=== PATIENT | female | born 1990 | race African-American/Black ===

== ENCOUNTER 2022-06-27 02:32 | Emergency (ER) | payer SELFPAY ==
--- NOTE | ~2022-06-27 | XR_ITS ---
EXAMINATION: XR chest 2V DATE: 06/27/2022 03:05 INDICATION: Shortness of breath. Chest pain. TECHNIQUE: Frontal and lateral views of the chest were obtained. COMPARISON: None. FINDINGS: The chest demonstrates clear lungs without pneumonia, pleural effusion, or pneumothorax. Th e heart size is normal. IMPRESSION: 1. No acute cardiopulmonary disease. Reviewed, dictated and finalized at location A. CARE GIVER
--- NOTE | 2022-06-27 02:35 | ECG_ITS ---
Measurements Intervals [place] Rate: 86 P: 58 AL: 158 QRS: 5 QRSD: 95 T: 43 QT: 356 QTc: 427 Interpretive Statements SINUS RHYTHM NO PREVIOUS ECG AVAILABLE FOR COMPARISON Electronically Signed On 06-27-2022 16:24:59 [employer] by Shanon Diop M.D.
[2022-06-27 02:41] VITALS: BP 151/92; PULSE 83; RESP 20; TEMP 37; O2SAT 100
[2022-06-27 03:00] LABS: Basophils Absolute Auto 0.1 K/mm3 (0.0-0.1); Basophils Percent Auto 0.7 % (0.2-1.2); Eosinophils Absolute Auto 0.3 K/mm3 (0-0.3); Eosinophils Percent Auto 2.6 % (0-4.4); Hematocrit 37.1 % (37.0-47.0); Immature Granulocyte Absolute 0.03 K/mm3 (0.00-0.031); Immature Granulocyte Percent A 0.3 % (0-0.5); Lymphocytes Absolute Auto 3.61 K/mm3 (0.9-3.2); Lymphocytes Percent Auto 37.1 % (18.3-44.2); Mean Corpuscular HGB Conc 32.3 g/dl (32-36); Mean Corpuscular Hemoglobin 28.6 pg (26-34); Mean Corpuscular Volume 88.5 fl (80-100); Mean Platelet Volume 8.9 fl (7.4-10.4); Monocytes Percent Auto 9.9 % (2.6-8.5); Neutrophils Absolute Auto 4.8 K/mm3 (1.3-6.7); Neutrophils Percent Auto 49.4 % (45.5-73.1); Platelet Count Result 480 k/mm3 (150-375); Red Blood Count 4.19 M/mm3 (4.2-5.4); Red Cell Distribution Width 14.3 % (11.5-14.5); White Blood Count 9.7 K/mm3 (4.5-10.0)
[2022-06-27 03:10] LABS: INR 1.1; Prothrombin Time 13.3 Seconds (11.1-14.7)
[2022-06-27 03:11] LABS: Alanine Aminotransferase 18 U/L (6-35); Albumin Level 4.3 g/dL (3.5-5.1); Alkaline Phosphatase 90 U/L (38-126); Anion Gap 8 mmol/L (8-16); Aspartate Amino Transferase 23 U/L (14-36); Bilirubin,Total 0.5 mg/dL (0.2-1.3); Blood Urea Nitrogen 10 mg/dL (7-17); Calcium 8.6 mg/dL (8.4-10.2); Carbon Dioxide 26 mmol/L (22-30); Chloride 105 mmol/L (98-107); Estimated Glomerular Filt Rate > 60; Glucose 100 mg/dL (65-110); Lipase 57 U/L (23-300); Potassium 3.5 mmol/L (3.4-5.0); Sodium 139 mmol/L (137-145)
[2022-06-27 03:23] LABS: Troponin I < 0.012 ng/mL (0.000-0.034)
[2022-06-27 03:35] LABS: Influenza A QL RT-PCR Negative (Negative); Influenza B QL RT-PCR Negative (Negative); RSV RNA, RT-PCR Negative (Negative); SARS-CoV-2 RNA PCR Positive
[2022-06-27 06:46] VITALS: BP 143/101; PULSE 86; RESP 14; TEMP 37.3; O2SAT 99
[2022-06-27 07:30] VITALS: O2SAT 99
--- NOTE | 2022-06-27 07:42 | ED.GENADULT ---
HPI - General Adult General Chief complaint: Chest Pain Stated complaint: chest pain/cough Time Seen by Provider: 06/27/22 07:18 History of Present Illness HPI narrative: 32-year-old female that denies any significant past medical history presented to the emergency department for evaluation of 2 days of cough and then a subsequent 2 days of additional chest pain and sore throat and body aches. Patient states she does work at [employer] and is fully vaccinated. Patient states she has not taken any medications for her symptoms Review of Systems Review of Systems: CONSTITUTIONAL: See HPI EYES: Denies visual changes, redness, or discharge. ENT: Denies rhinorrhea, congestion, sore throat, or otalgia. CARDIOVASCULAR: Denies chest pain, palpitations, or edema. RESPIRATORY: See HPI GASTROINTESTINAL: Denies abdominal pain, nausea, vomiting, or diarrhea. GENITOURINARY: Denies dysuria or hematuria. SKIN: Denies rash or itching. MUSCULOSKELETAL: Denies back pain, joint pain, or myalgia. NEUROLOGIC: Denies headache, numbness, or weakness. Exam Narrative: APPEARANCE: Well appearing, no pain, no distress, well-nourished. HEAD: normocephalic, atraumatic. EYES: PERRLA/EOMI, conjunctivae clear. NOSE: Normal no drainage EARS:TMS clear with good light reflex. THROAT: Pharynx clear, no exudate. NECK: Supple. No adenopathy, no masses. RESPIRATORY: Airway patent, respirations nonlabored. Clear to auscultation bilaterally, no rales, rhonchi, wheezing. CARDIOVASCULAR: Regular rate and rhythm without murmurs rubs or gallops. ABDOMINAL: Soft, nontender, nondistended, normal bowel sounds MUSCULOSKELETAL: Moves all extremities. Strength/ROM intact, No edema, No calf tenderness. NEURO: Alert. Cranial nerves II through XII intact. Grossly intact SKIN: Warm, dry. Normal Color Course Course Emergency Course: Patient did test positive for COVID. Patient's x-ray shows no acute cardiopulmonary malady. Patient is nontachycardic or hypoxic. Patient is afebrile with no leukocytosis. Patient's coags are within normal limits patient CMP shows no abnormalities. Patient was negative for influenza and RSV. Patient was updated on the results of the work-up and on the treatment plan for home. All question concerns were addressed. Patient will be provided Tessalon Perles and an albuterol inhaler for home. Vital Signs Vital signs: Vital Signs Temperature 98.6 F 06/27/22 02:41 Pulse Rate 83 06/27/22 02:41 Respiratory Rate 20 06/27/22 02:41 Blood Pressure 151/92 H 06/27/22 02:41 Pulse Oximetry 100 06/27/22 02:41 Oxygen Delivery Room Air 06/27/22 02:41 Temperature 99.1 F 06/27/22 06:46 Pulse Rate 70 06/27/22 08:20 Respiratory Rate 16 06/27/22 08:20 Blood Pressure 120/78 06/27/22 08:20 Pulse Oximetry 97 06/27/22 08:20 Oxygen Delivery Room Air 06/27/22 07:30 Medical Decision Making Vital Signs Vital Signs: Vital Signs Temperature 98.6 F 06/27/22 02:41 Pulse Rate 83 06/27/22 02:41 Respiratory Rate 20 06/27/22 02:41 Blood Pressure 151/92 H 06/27/22 02:41 Pulse Oximetry 100 06/27/22 02:41 Oxygen Delivery Room Air 06/27/22 02:41 Temperature 99.1 F 06/27/22 06:46 Pulse Rate 70 06/27/22 08:20 Respiratory Rate 16 06/27/22 08:20 Blood Pressure 120/78 06/27/22 08:20 Pulse Oximetry 97 06/27/22 08:20 Oxygen Delivery Room Air 06/27/22 07:30 Lab Data Lab results reviewed: Yes I reviewed the patient's lab results. 06/27/22 02:53 06/27/22 02:53 Labs: Lab Results 06/27/22 06/27/22 06/27/22 Range/Units 02:53 02:53 02:53 WBC 9.7 (4.5-10.0) K/mm3 RBC 4.19 L (4.2-5.4) M/mm3 Hgb 12.0 (12.0-15.0) g/dL Hct 37.1 (37.0-47.0) % MCV 88.5 (80-100) fl MCH 28.6 (26-34) pg MCHC 32.3 (32-36) g/dl RDW 14.3 (11.5-14.5) % Plt Count 480 H (150-375) k/mm3 MPV 8.9 (7.4-10.4) fl Immature Gran % (Auto) 0.3 (0-0.5) %
[2022-06-27] MEDS: BENZONATATE 100 MG CAPSULE PO (08:08)
[2022-06-27] MEDS: ACETAMINOPHEN 500 MG TABLET 1000 MG PO (08:09)
[2022-06-27 08:20] VITALS: BP 120/78; PULSE 70; RESP 16; O2SAT 97
== END 2022-06-27 08:20 | disposition home or self-care (01) ==
PROVIDERS: Emergency Medicine; Emergency Provider Emergency Medicine
DX: U07.1 COVID-19 (principal)
CPT/HCPCS: 36415; 71046; 80053; 83690; 84484; 85025; 85610; 85730; 87637; 93005; 99284; A9270

== ENCOUNTER 2023-02-12 20:11 | Emergency (ER) | payer OTHER, SELFPAY ==
--- NOTE | ~2023-02-12 | XR_ITS ---
EXAM: XR ankle RT 2V, XR foot RT min 3V DATE: 02/12/2023 21:44 (accession [id number]), 02/12/2023 21:45 (accession [id number]) HISTORY: Pain/swelling to rt anterior ankle dorsal foot- no injury . COMPARISON: None available. FINDINGS: Normal mineralization. No fracture or dislocation. No lytic or blastic lesion. Joint space s are maintained. No erosion or periosteal change. 3 mm radiopacity in the dorsal soft tissues superf icial to the proximal aspect of the second metatarsal. IMPRESSION: No acute osseous finding in the right foot or ankle 3 mm soft tissue calcification or foreign body in the dorsal soft tissues superficial to the proximal aspect of the second metatarsal. Reviewed, dictated and finalized at location K. IMPRESSION: No acute osseous finding in the right foot or ankle 3 mm soft tissue calcification or foreign body in the dorsal soft tissues super ficial to the proximal aspect of the second metatarsal.
[2023-02-12 20:47] VITALS: BP 147/99; PULSE 80; RESP 16; TEMP 36.4; O2SAT 100
[2023-02-12] MEDS: HYDROcodone/acetaminophen (*CRX) 5-325 MG TABLET 1 TAB PO (21:47)
[2023-02-12] MEDS: Please add drug allergy info to patient profile. 1 EACH XX (22:00)
--- NOTE | 2023-02-12 22:35 | ED.GENADULT ---
HPI - General Adult General Chief complaint: Extremity Injury, Lower Stated complaint: right ankle pain Time Seen by Provider: 02/12/23 21:21 Source: patient Mode of arrival: ambulatory Limitations: no limitations History of Present Illness HPI narrative: This is a 32-year-old female who presents to the ED with chief complaint of right foot and lower extremity pain ongoing for the past couple of days. She reports that this for started yesterday while she was walking. Denies any specific trauma or injury. Denies falls. Endorses some swelling to the foot. Denies bruising or wounds. She also endorses occasional right lower extremity tingling. Associated symptoms of chronic lower back pain. Denies any fevers, warmth. Related Data Allergies Allergy/AdvReac Type Severity Reaction Status Date / Time No Known Allergies Allergy Verified 02/12/23 21:59 Exam Narrative: GENERAL: Well-appearing, well-nourished, and in no acute distress. HEAD: Normocephalic, atraumatic. EYES: PERRLA and EOMI. ENT: Nares clear, no rhinorrhea or epistaxis. Mucous membranes moist. Oropharynx without tonsillar hypertrophy exudate or other lesions. NECK: Supple. No adenopathy or masses. CHEST: No respiratory distress. Clear to auscultation. No wheezes rales or rhonchi HEART: Regular rate and rhythm. No murmur heard. Normal peripheral pulses. ABDOMEN: Soft, nontender, nondistended, normal active bowel sounds. MSK: Right lower extremity: Mild tenderness to the right foot first MTP in the metatarsal area. No significant swelling, bruising, skin changes throughout the foot. Ankle is minimally tender. The rest of the right lower extremity is benign. Left lower extremity: Benign. SKIN: Warm, dry, no rash. NEURO: Alert and oriented x3. No focal deficits. PSYCH: Normal mood and affect. Course Vital Signs Vital signs: Vital Signs Temperature 97.6 F 02/12/23 20:47 Pulse Rate 80 02/12/23 20:47 Respiratory Rate 16 02/12/23 20:47 Blood Pressure 147/99 H 02/12/23 20:47 Pulse Oximetry 100 02/12/23 20:47 Oxygen Delivery Room Air 02/12/23 20:47 Temperature 97.6 F 02/12/23 20:47 Pulse Rate 80 02/12/23 20:47 Respiratory Rate 16 02/12/23 20:47 Blood Pressure 147/99 H 02/12/23 20:47 Pulse Oximetry 100 02/12/23 20:47 Oxygen Delivery Room Air 02/12/23 20:47 Medical Decision Making MDM Narrative Medical decision making narrative: This is a 32-year-old female who presents to the ED with chief complaint of right lower extremity pain for the past couple of days. For started while she was taking a walk yesterday. Vitals are normal. Exam is remarkable for above. No bruising or deformity. X-rays show No acute osseous finding in the right foot or ankle 3 mm soft tissue calcification or foreign body in the dorsal soft tissues superficial to the proximal aspect of the second metatarsal.. She does not have any wounds or lesions to the foot. Do not feel that she has any retained foreign body that could be causing this pain. Symptoms are likely consistent muscle strain. She does have history of low back pain so this could be coming from the low back as well. I discussed these findings with the patient and encouraged PCP follow-up on this. Naproxen prescription given. Supportive measures for home discussed. Return precautions given. Patient is understanding and agreeable with the plan for discharge and follow-up with PCP. Vital Signs Vital Signs: Vital Signs Temperature 97.6 F 02/12/23 20:47 Pulse Rate 80 02/12/23 20:47 Respiratory Rate 16 02/12/23 20:47 Blood Pressure 147/99 H 02/12/23 20:47 Pulse Oximetry 100 02/12/23 20:47 Oxygen Delivery Room Air 02/12/23 20:47 Temperature 97.6 F 02/12/23 20:47 Pulse Rate 80 02/12/23 20:47 Respiratory Rate 16 02/12/23 20:47 Blood Pressure 147/99 H 02/12/23 20:47 Pulse Oximetry 100 02/12/23 20:47 Oxygen Delivery Room Air 02/12/23 20:47
== END 2023-02-12 23:02 | disposition home or self-care (01) ==
PROVIDERS: Emergency Provider Physician Assistant
DX: M25.571 Pain in right ankle and joints of right foot (principal); R93.6 Abnormal findings on diagnostic imaging of limbs
CPT/HCPCS: 73600; 73630; 99283; A9270

== ENCOUNTER 2024-05-16 08:09 | Emergency (ER) | payer OTHER, SELFPAY ==
--- NOTE | ~2024-05-16 | XR_ITS ---
EXAMINATION: XR chest 1V portable DATE: 05/16/2024 10:21 INDICATION: Epigastric abdominal pain. Chills. TECHNIQUE: A single frontal view of the chest was obtained. COMPARISON: Chest 2 views 06/27/2022 FINDINGS: There is no pneumonia, pleural effusion, or pneumothorax. The heart size is normal. IMPRESSION: 1. No acute cardiopulmonary disease. Reviewed, dictated and finalized at location B.
[2024-05-16 08:13] VITALS: BP 133/98; PULSE 97; RESP 14; TEMP 36.6; O2SAT 99
[2024-05-16 08:28] LABS: BEDSIDEPREGUCG Negative (Negative)
[2024-05-16 08:36] LABS: Basophils Percent Auto 0.5 % (0.2-1.2); Eosinophils Absolute Auto 0.1 K/mm3 (0-0.3); Eosinophils Percent Auto 0.8 % (0-4.4); Hematocrit 36.2 % (37.0-47.0); Hemoglobin 11.8 g/dL (12.0-15.0); Immature Granulocyte Absolute 0.02 K/mm3 (0.00-0.031); Immature Granulocyte Percent A 0.3 % (0-0.5); Lymphocytes Absolute Auto 2.82 K/mm3 (0.9-3.2); Lymphocytes Percent Auto 36.4 % (18.3-44.2); Mean Corpuscular HGB Conc 32.6 g/dl (32-36); Mean Corpuscular Hemoglobin 28.6 pg (26-34); Mean Corpuscular Volume 87.9 fl (80-100); Monocytes Absolute Auto 0.6 K/mm3 (0.1-0.6); Neutrophils Absolute Auto 4.2 K/mm3 (1.3-6.7); Platelet Count Result 541 k/mm3 (150-375); Red Blood Count 4.12 M/mm3 (4.2-5.4); White Blood Count 7.8 K/mm3 (4.5-10.0)
[2024-05-16 08:37] LABS: Add Urine Microscopic? NO; Appearance Urine Clear (Clear); Bilirubin Urine Negative (Negative); Blood Urine Negative (Negative); Color Urine Yellow (Yellow); Glucose Urine UA Negative (Negative); Ketones Urine Negative (Negative); Leukocyte Esterase Ur Negative LEU/UL (Negative); Nitrate Urine Negative (Negative); Protein Urine Negative (Negative); Specific Grav Ur 1.019 (1.001-1.035); Urobilinogen Urine 0.2 mg/dL (<2.0); pH Urine 7.5 (5.0-9.0)
[2024-05-16 08:48] LABS: Alanine Aminotransferase 19 U/L (6-35); Albumin Level 4.3 g/dL (3.5-5.1); Alkaline Phosphatase 61 U/L (38-126); Anion Gap 8 mmol/L (4-12); Aspartate Amino Transferase 24 U/L (14-36); Bilirubin,Total 0.7 mg/dL (0.2-1.3); Blood Urea Nitrogen 14 mg/dL (7-17); Calcium 9.5 mg/dL (8.4-10.2); Carbon Dioxide 26 mmol/L (22-30); Chloride 105 mmol/L (98-107); Estimated CRCL calculation 80 ml/min; Estimated Glomerular Filt Rate > 60; Glucose 95 mg/dL (65-110); Lipase 71 U/L (23-300); Potassium 4.1 mmol/L (3.4-5.0); Sodium 139 mmol/L (137-145)
--- NOTE | 2024-05-16 09:12 | ED.ABDPAIN ---
HPI - Abdominal Pain General Chief Complaint: Abdominal Pain Stated Complaint: abdominal pain Time Seen by Provider: 05/16/24 08:46 Source: patient Mode of arrival: ambulatory Limitations: no limitations History of Present Illness HPI narrative: 34-year-old female presents with upper abdominal pain described as a pressure. This started last night when she sneezed and experienced a tightness in this area. It is worse when she sneezes and with inspiration. It is intermittent but also intensifies with movement . When she gets a certain position she can experience some pain relief. It started under her left breast. She denies any cough or fever but she has been feeling chilled. She has been having nausea but no vomiting. Her last bowel movement was this morning and denies any diarrhea, constipation, or bloody stool. This has never happened before. Does not follow with a stemhole borer and has never had an EGD. Her last oral intake was this morning and she still has an appetite. Unclear relationship between symptoms and food. She denies any alcohol consumption. She used a BC (? , similar to a stanback for headache 3 days ago but otherwise has not been taking NSAIDs. Patient states she has a PCP. Related Data Allergies Allergy/AdvReac Type Severity Reaction Status Date / Time No Known Allergies Allergy Verified 02/12/23 21:59 [facility] Social History Social History (Updated 05/16/24 @ 10:02 by Adeola Loera MD) Alcohol use details: denies Exam Narrative: GENERAL: Well-appearing, well-nourished, and in no acute distress. HEAD: Normocephalic, atraumatic. EYES: Non injected, non icteric ENT: Nares clear, no rhinorrhea or epistaxis. NECK: Supple. CHEST: Speaking in full sentences. No respiratory distress. HEART: Regular rate and rhythm. . ABDOMEN: Soft, nondistended. very mild tenderness to palpation at the epigastrium without rigidity or guarding. Not peritoneal. EXTREMITIES: Normal range of motion. No lower extremity edema. SKIN: Warm, dry, no rash Including over abdomen or around/under her left breast. NEURO: No focal deficits. Alert and oriented x3. PSYCH: Normal mood and affect. Course Vital Signs Vital signs: Vital Signs Temperature 98 F 05/16/24 08:13 Pulse Rate 97 05/16/24 08:13 Respiratory Rate 14 05/16/24 08:13 Blood Pressure 133/98 H 05/16/24 08:13 Pulse Oximetry 99 05/16/24 08:13 Oxygen Delivery Room Air 05/16/24 08:13 Temperature 98 F 05/16/24 08:13 Pulse Rate 76 05/16/24 11:17 Respiratory Rate 14 05/16/24 08:13 Blood Pressure 125/76 05/16/24 11:17 Pulse Oximetry 99 05/16/24 08:13 Oxygen Delivery Room Air 05/16/24 08:13 MDM - Abdominal Pain MDM Narrative Medical decision making narrative: Patient presents with epigastric abdominal pain described as a pressure. Some associated nausea. In the emergency department she is afebrile with vital signs notable for elevated diastolic blood pressure. No marked lab abnormalities only the minor ones listed below. Patient given medications. Patient reassessed approximately 11:00 a.m.. She states the medication she she was given have helped she is feeling much better. In sum, This patient presents with abdominal pain of unclear etiology. Their evaluation has not identified an emergent etiology for the abdominal pain. Specifically, given the very benign exam, normal laboratory values, and lack of significant risk factors, I have a very low suspicion for appendicitis, ischemic bowel, bowel perforation, or any other life threatening disease. I have discussed with the patient the level of uncertainty with undifferentiated abdominal pain and advised to follow-up as noted on the discharge instructions, or return to the Emergency Department immediately if new/worsening symptoms. Provided prescriptons for famotidine and Zofran. Differential Diagnosis Differential diagnosis: Likely abdominal pain, constipation, pancreatitis and other ( Gastritis, musculoskeletal, pneumonia) Lab Data Attestation: I reviewed the patient's lab results. Lab results narrative: normocytic anemia though only slightly decreased from previous. Thrombocytosis, likely reactive 05/16/24 08:27 05/16/24 08:27 Labs: Lab Results 05/16/24 05/16/24 05/16/24 Range/Units 08:23 08:26 08:27 WBC 7.8 (4.5-10.0) K/mm3 RBC 4.12 L (4.2-5.4) M/mm3 Hgb 11.8 L (12.0-15.0) g/dL Hct 36.2 L (37.0-47.0) % MCV 87.9 (80-100) fl MCH 28.6 (26-34) pg MCHC 32.6 (32-36) g/dl RDW 14.0 (11.5-14.5) % Plt Count 541 H (150-375) k/mm3 MPV 9.0 (7.4-10.4) fl Immature Gran % (Auto) 0.3 (0-0.5) % Neut % (Auto) 54.0 (45.5-73.1) % Lymph % (Auto) 36.4 (18.3-44.2) % [place] % (Auto) 8.0 (2.6-8.5) % Eos % (Auto) 0.8 (0-4.4) % Baso % (Auto) 0.5 (0.2-1.2) % Lymph # (Auto) 2.82 (0.9-3.2) K/mm3 [place] # (Auto) 0.6 (0.1-0.6) K/mm3 Eos # (Auto) 0.1 (0-0.3) K/mm3 Baso # (Auto) 0.0 (0.0-0.1) K/mm3 Abs Immat Gran (auto) 0.02 (0.00-0.031) K/mm3 Absolute Neuts (auto) 4.2 (1.3-6.7) K/mm3 Absolute Nucleated RBC 0.000 (0.0-0.012) K/mm3 Nucleated RBC % 0.0 (0.0-0.2) % Sodium 139 (137-145) mmol/L Potassium 4.1 (3.4-5.0) mmol/L Chloride 105 (98-107) mmol/L Carbon Dioxide 26 (22-30) mmol/L Anion Gap 8 (4-12) mmol/L BUN 14 (7-17) mg/dL Creatinine 0.90 (0.7-1.0) mg/dL Estim Creat Clear Calc 80 ml/min Estimated GFR > 60 (59 - ) Glucose 95 (65-110) mg/dL Calcium 9.5 (8.4-10.2) mg/dL Total Bilirubin 0.7 (0.2-1.3) mg/dL AST 24 (14-36) U/L ALT 19 (6-35) U/L Alkaline Phosphatase 61 (38-126) U/L Total Protein 8.0 (6.3-8.2) g/dL Albumin 4.3 (3.5-5.1) g/dL Lipase 71 (23-300) U/L Urine Color Yellow (Yellow) Urine Appearance Clear (Clear) Urine pH 7.5 (5.0-9.0) Ur Specific [place] 1.019 (1.001-1.035) Urine Protein Negative (Negative) mg/dL Urine Glucose (UA) Negative (Negative) mg/dL Urine Ketones Negative (Negative) mg/dL Ur Blood (Man) Negative (Negative) Urine Nitrate Negative (Negative) Urine Bilirubin Negative (Negative) Urine Urobilinogen 0.2 (<2.0) mg/dL Leukocyte Esterase Rfl Negative (Negative) JOSE ELIAS/UL POC Urine HCG, Qual Negative (Negative) Imaging Data Radiologist's impression: ITS Impressions Chest X-Ray 05/16/24 10:25 IMPRESSION: 1. No acute cardiopulmonary disease. Discharge Plan Discharge Clinical Impression: Epigastric abdominal pain, Normocytic anemia, Thrombocytosis Patient Disposition: Home, Self-Care Condition: Stable Instructions: Antibiotic Form, Gastritis (DC), Anemia (ED), Epigastric Pain (ED) Additional Instructions: This presentation today for abdominal pain appears benign at this time. Although the tests in the ED were essentially normal, return to the ED if any new/worsening symptoms as this may be an early presentation of a more serious issue. Follow-up with primary care physician. You can use the prescribed medications, the famotidine for stomach acid control and the oral disintegrating tablets of advanced trauma/ Zofran can help with nausea and vomiting. Rest and maintain your hydration today. Prescriptions: New famotidine 20 mg tablet 20 mg PO DAILY Qty: 30 0RF ondansetron 4 mg tablet,disintegrating 4 mg PO Q8H PRN (Reason: nausea and vomiting) Qty: 7 0RF No Action naproxen 500 mg tablet 500 mg PO BID PRN (Reason: pain) Qty: 30 0RF benzonatate 100 mg capsule 100 mg PO TID PRN (Reason: cough) Qty: 20 0RF albuterol sulfate 90 mcg/actuation HFA aerosol inhaler 1 inh inhalation QID PRN (Reason: shortness of breath or wheezing) Qty: 6.7 0RF Follow-up/Referrals: UNKNOWN,DOCTOR [Primary Care Provider] - Stand Alone Forms: Work/School Release IP Time of Disposition: 11:05
[2024-05-16] MEDS: FAMOTIDINE 20 MG/2 ML VIAL IV PUSH (09:18)
[2024-05-16] MEDS: MORPHINE SULFATE (*CRX) 4 MG/ML INJ IV PUSH (10:12)
[2024-05-16 11:17] VITALS: BP 125/76; PULSE 76
== END 2024-05-16 11:18 | disposition home or self-care (01) ==
PROVIDERS: Emergency Provider Student in an Organized Health Care Education/Training Program
DX: R10.13 Epigastric pain (principal); D64.9 Anemia, unspecified; D75.839 Thrombocytosis, unspecified
CPT/HCPCS: 36415; 71045; 80053; 81003; 81025; 83690; 85025; 96374; 96375; 99284; J2270